=== PATIENT | male | born 1950 | race Caucasian/White ===

== ENCOUNTER → 2024-01-02 10:28 | Outpatient (REF) | payer OTHER, SELFPAY | LOC: HWRAD 10:28 | PROVIDERS: ATTENDING PHYSICIAN Internal Medicine; FAMILY PHYSICIAN Student in an Organized Health Care Education/Training Program | DX: R91.8 Other nonspecific abnormal finding of lung field (principal) | CPT/HCPCS: 71250 ==

== ENCOUNTER → 2024-04-29 16:29 | Outpatient (REF) | payer OTHER, SELFPAY | LOC: HWRAD 16:29 | PROVIDERS: ATTENDING PHYSICIAN Physician Assistant Medical | DX: J06.9 Acute upper respiratory infection, unspecified (principal) | CPT/HCPCS: 71046 ==

== ENCOUNTER → 2024-05-13 14:33 | Outpatient (REF) | payer OTHER, SELFPAY | LOC: HWRAD 14:33 | PROVIDERS: ATTENDING PHYSICIAN Student in an Organized Health Care Education/Training Program | DX: R31.9 Hematuria, unspecified (principal); R30.0 Dysuria | CPT/HCPCS: 76770 ==

== ENCOUNTER → 2024-05-25 09:27 | Outpatient (REF) | payer OTHER, SELFPAY ==
[2024-05-25 11:34] LABS: % Basophils 0.4 % (0-2); % Eosinophils 1.4 % (0-6); % Immature Granulocytes 0.3 % (0-0.5); % Lymphocytes 26.2 % (20.5-51.1); % Monocytes 8.1 % (1.7-9.3); % Neutrophils 63.6 % (42.2-75.2); Absolute Eosinophils 0.1 10^3/uL (0-0.7); Absolute Lymphocytes 2.1 10^3/uL (1.2-3.4); Absolute Monocytes 0.7 10^3/uL (0.1-0.6); Absolute Neutrophils 5.1 10^3/uL (1.4-6.5); Hematocrit 45.8 % (39.0-52.0); Hemoglobin 15.2 g/dL (13.0-18.0); Mean Corp Hgb Conc. 33.2 g/dL (33.0-37.0); Mean Corpuscular Volume 99.3 fL (80.0-94.0); Mean Platelet Volume 9.7 fL (7.4-10.4); Nucleated Red Blood Cells % 0 % (-); Platelet Count 160 10^3/uL (130-400); Red Blood Cell Count 4.61 10^6/uL (4.70-6.10); Red Cell Dist. Width 13.5 % (11.5-14.5)
[2024-05-25 12:13] LABS: ALT (SGPT) 22 U/L (0-50); AST (SGOT) 23 U/L (17-59); Albumin 4.5 g/dl (3.5-5.0); Alkaline Phosphatase 75 U/L (38-126); Blood Urea Nitrogen 15 mg/dl (9-20); Calcium 9.4 mg/dl (8.4-10.2); Carbon Dioxide 29 mmol/L (22-30); Chloride 106 mmol/L (98-107); Glucose 102 mg/dl (70-99); HDL Cholesterol 45 mg/dl; LDL Cholesterol, Calculated 124 mg/dl; Potassium 4.2 mmol/L (3.5-5.1); Sodium 140 mmol/L (135-145); Total Bilirubin 1.8 mg/dl (0.2-1.3); Total Cholesterol 191 mg/dl (50-199); Total Protein 7.2 g/dl (6.3-8.2); Triglyceride 114 mg/dl (10-149); Very Low Density Lipoprotein 22 mg/dl (0-30); eGFR > 60.00
[2024-05-25 12:29] LABS: PSA, Total - Screen 1.51 ng/ml (0.0-4.0)
== END ==
LOC: HWLAB 09:27
PROVIDERS: ATTENDING PHYSICIAN Student in an Organized Health Care Education/Training Program
DX: G70.00 Myasthenia gravis without (acute) exacerbation (principal); F41.9 Anxiety disorder, unspecified; E78.2 Mixed hyperlipidemia; I48.21 Permanent atrial fibrillation; Z12.5 Encounter for screening for malignant neoplasm of prostate
CPT/HCPCS: 36415; 80053; 80061; 84443; 85025; G0103

== ENCOUNTER → 2024-07-12 17:27 | Outpatient (REF) | payer OTHER, SELFPAY ==
[2024-07-12 19:08] LABS: Urine Albumin 1+ (Neg - Trace); Urine Bilirubin Negative (Negative); Urine Character Very Cloudy (Clear); Urine Color Amber; Urine Glucose Negative (Negative); Urine Ketone Negative (Negative); Urine Leukocyte 2+ (Negative); Urine Nitrite Positive (Negative); Urine Occult Blood 1+ (Negative); Urine Specific Gravity 1.015 (<1.030); Urine Urobilinogen Negative (Neg - 1+)
[2024-07-12 19:22] LABS: Urine Bacteria Few (Negative); Urine Red Blood Cell 26-30 /HPF (0-2)
== END ==
LOC: CLAB 17:27
PROVIDERS: ATTENDING PHYSICIAN Urology
DX: R31.0 Gross hematuria (principal)
CPT/HCPCS: 81003; 81015; 88112

== ENCOUNTER → 2024-07-14 07:58 | Outpatient (REF) | payer OTHER, SELFPAY | LOC: HWLAB 07:58 | PROVIDERS: ATTENDING PHYSICIAN Urology; FAMILY PHYSICIAN Student in an Organized Health Care Education/Training Program | DX: R31.0 Gross hematuria (principal) | CPT/HCPCS: 36415; 84403 ==

== ENCOUNTER → 2024-07-21 09:46 | Outpatient (REF) | payer OTHER, SELFPAY | LOC: HWRAD 09:46 | PROVIDERS: ATTENDING PHYSICIAN Urology; FAMILY PHYSICIAN Student in an Organized Health Care Education/Training Program | DX: R31.0 Gross hematuria (principal) | CPT/HCPCS: 74178; Q9967 ==

== ENCOUNTER 2024-08-17 06:10 | Day surgery (SDC) | payer OTHER, SELFPAY ==
[2024-08-13 12:41] VITALS: BMI 28.1
[2024-08-17] VITALS (7 sets, daily range): BP systolic 114–160; BP diastolic 63–93; BMI 28.1; BMI 29.8
[2024-08-17] MEDS: NORMOSOL-R/PLASMALYTE-A 1000 IV (06:57)
[2024-08-21 13:27] LABS: Stone Analysis Mass 51 mg
== END 2024-08-17 10:45 | disposition home or self-care (01) ==
LOC: SDS 06:10
PROVIDERS: ATTENDING PHYSICIAN Urology; FAMILY PHYSICIAN Internal Medicine Rheumatology; OTHER PHYSICIAN Internal Medicine Cardiovascular Disease
DX: N20.2 Calculus of kidney with calculus of ureter (principal); R31.0 Gross hematuria
CPT/HCPCS: 52356; 36415; 74018; 76000; 82365; 93005; A4300; C1758; C1769; C1894; C2617

== ENCOUNTER → 2024-12-02 14:14 | Outpatient (REF) | payer OTHER, SELFPAY | LOC: HWRAD 14:14 | PROVIDERS: ATTENDING PHYSICIAN Student in an Organized Health Care Education/Training Program | DX: R05.9 Cough, unspecified (principal) | CPT/HCPCS: 71046 ==

== ENCOUNTER → 2025-10-26 08:15 | Outpatient (REF) | payer OTHER, SELFPAY ==
[2025-10-26 08:53] LABS: Hematocrit 49.3 % (39.0-52.0); Hemoglobin 16.8 g/dL (13.0-18.0); Mean Corp Hgb Conc. 34.1 g/dL (33.0-37.0); Mean Corpuscular Volume 101.2 fL (80.0-94.0); Nucleated Red Blood Cells % 0 % (-); Platelet Count 151 10^3/uL (130-400); Red Cell Dist. Width 13.3 % (11.5-14.5)
[2025-10-26 10:21] LABS: ALT (SGPT) 23 U/L (0-50); AST (SGOT) 22 U/L (17-59); Albumin 4.6 g/dl (3.5-5.0); Alkaline Phosphatase 62 U/L (38-126); Blood Urea Nitrogen 15 mg/dl (9-20); Calcium 9.3 mg/dl (8.4-10.2); Carbon Dioxide 30 mmol/L (22-30); Chloride 107 mmol/L (98-107); Glucose 100 mg/dl (70-99); HDL Cholesterol 39 mg/dl; LDL Cholesterol, Calculated 123 mg/dl; Potassium 4.1 mmol/L (3.5-5.1); Sodium 140 mmol/L (135-145); Total Protein 7.3 g/dl (6.3-8.2); Very Low Density Lipoprotein 26 mg/dl (0-30); eGFR > 60.00
[2025-10-26 10:27] LABS: PSA, Total - Screen 0.60 ng/ml (0.0-4.0)
== END ==
LOC: REG 08:15
PROVIDERS: ATTENDING PHYSICIAN Student in an Organized Health Care Education/Training Program
DX: I48.21 Permanent atrial fibrillation (principal); Z79.01 Long term (current) use of anticoagulants; G47.33 Obstructive sleep apnea (adult) (pediatric); I10 Essential (primary) hypertension; G70.00 Myasthenia gravis without (acute) exacerbation; F41.9 Anxiety disorder, unspecified; E78.1 Pure hyperglyceridemia; E66.811 Obesity, class 1; N52.9 Male erectile dysfunction, unspecified
CPT/HCPCS: 36415; 80053; 80061; 84443; 85025; G0103